=== PATIENT | male | born 1960 | race African-American/Black ===

== ENCOUNTER 2025-03-08 14:15 | Emergency (ER) | payer OTHER ==
[~2025-03-08] VITALS: Ht 172.7 cm; Wt 107.1 kg
[2025-03-08 14:51] LABS: BASO # 0.0 10^3/uL (0.0-0.2); BASO % 0.7 % (0.0-1.0); EOS # 0.1 10^3/uL (0.0-0.5); EOS % 1.6 % (0.0-3.0); LYMPH # 0.8 10^3/uL (1.5-5.0); LYMPH % 14.5 % (24.0-44.0); MONO # 0.4 10^3/uL (0.0-0.8); MONO % 7.6 % (2.0-8.0); NEUTROPHILS # 4.2 10^3/uL (1.5-8.5); NEUTROPHILS % 75.2 % (36.0-66.0); PLATELET COUNT, AUTOMATED 229 10^3/uL (150-450)
[2025-03-08 15:02] LABS: INR 1.03
[2025-03-08 15:12] LABS: CK-MB VALUE MASS 2.6 NG/ML (<3.6)
[2025-03-08 15:14] LABS: ALT/SGPT 28.0 U/L (7.0-40); AST/SGOT 20.0 U/L (<34); CALCIUM LEVEL 8.8 MG/DL (8.3-10.6); CARBON DIOXIDE LEVEL 25.0 MMOL/L (20-31); CHLORIDE LEVEL 103.0 MMOL/L (98-107); CREATININE FOR GFR 1.21 MG/DL (0.70-1.30); GLOMERULAR FILTRATION RATE 67.7 (>49); POTASSIUM SERUM 4.2 MMOL/L (3.5-5.1); SODIUM LEVEL 142.0 MMOL/L (136-145)
[2025-03-08 15:22] LABS: CPK CREATINE PHOSPHOKINASE 162.0 U/L (46-171); FREE T4 1.17 NG/DL (0.89-1.76); MB/CK RELATIVE INDEX 1.6 (< OR =4)
[2025-03-08] MEDS: ASPIRIN 81 MG CHEWABLE TABLET PO ONE (15:41)
[2025-03-08 16:23] LABS: CK-MB VALUE MASS 1.8 NG/ML (<3.6)
[2025-03-08 16:26] LABS: CPK CREATINE PHOSPHOKINASE 153.0 U/L (46-171); MB/CK RELATIVE INDEX 1.17 (< OR =4)
[2025-03-08] MEDS ORDERED: MULT-90 PO (16:44)
[2025-03-08] MEDS ORDERED: MAGN400T2 PO (16:44)
[2025-03-08] MEDS ORDERED: GLIP10TA15 PO (16:44)
[2025-03-08] MEDS ORDERED: ESOM40CA35 PO (16:44)
[2025-03-08] MEDS ORDERED: ELIQ5TAB PO (16:44)
[2025-03-08] MEDS ORDERED: JARD1TAB PO (16:44)
[2025-03-08] MEDS ORDERED: METF10004 PO (16:44)
[2025-03-08] MEDS ORDERED: CYAN-11 PO (16:44)
[2025-03-08] MEDS ORDERED: FLUTISP NARES (16:44)
[2025-03-08] MEDS ORDERED: [UNRECOGNIZED DRUG - CODE] PO (16:44)
[2025-03-08] MEDS ORDERED: FERR32TA PO (16:44)
[2025-03-08] MEDS ORDERED: CLOP75TA2 PO (16:44)
[2025-03-08] MEDS ORDERED: SIMV40TA20 PO (16:44)
[2025-03-08] MEDS ORDERED: METO1TAB7 PO (16:44)
[2025-03-08] MEDS ORDERED: ASPI81TA26 PO (16:44)
[2025-03-08] MEDS ORDERED: TADA20TA PO (16:44)
[2025-03-08] MEDS ORDERED: HYDR12.55 PO (16:44)
[2025-03-08] MEDS ORDERED: D3 H10002 PO (16:44)
[2025-03-08] MEDS ORDERED: HOME MED LIST COMPLETE! XX SCH (16:45)
[2025-03-08 18:15] VITALS: BP 146/76; TEMP 98.2; O2SAT 98
== END 2025-03-08 18:19 | disposition home or self-care (01) ==
LOC: M ED 14:15
DX: R07.89 Other chest pain (principal); E11.9 Type 2 diabetes mellitus without complications; K21.9 Gastro-esophageal reflux disease without esophagitis; I48.91 Unspecified atrial fibrillation; I25.2 Old myocardial infarction; Z79.01 Long term (current) use of anticoagulants; Z79.1 Long term (current) use of non-steroidal anti-inflammatories (NSAID); Z79.84 Long term (current) use of oral hypoglycemic drugs; Z79.899 Other long term (current) drug therapy; Z79.810 Long term (current) use of selective estrogen receptor modulators (SERMs)